=== PATIENT | female | born 1960 | race Caucasian/White ===

== ENCOUNTER 2018-07-28 12:33 | Emergency (ER) | payer BC ==
[~2018-07-28] VITALS: Ht 167.6 cm; Wt 68.2 kg
[~2018-07-28 12:33] MED LIST: AMBIEN 10MG10 MG PO; ASPIRIN 81M81 MG/TA2 PO; CARAFATE 1GM1 G PO; CHANTIX 1MG1 MG; HCTZ 25MG TAB25 MG PO; MEVACOR40 MG PO; MOTRIN 800800 MG/TAB PO; PRILOSEC 20MG20 MG PO; TENORMIN 5050 MG/TAB PO; TUMS500 MG; WELLBUTRIN 75MG75 MG PO; ZANTAC 7575 MG; ZESTRIL 20MG TA20 MG PO; ZYRTEC 10MG10 MG PO
[2018-07-28 12:40] VITALS: TEMP 98.9
[2018-07-28 14:41] VITALS: BP 168/76; PULSE 80
== END 2018-07-28 14:42 | disposition home or self-care (01) ==
LOC: COL.ER 12:33
DX: S90.111A Contusion of right great toe without damage to nail, initial encounter (principal); I10 Essential (primary) hypertension; I25.10 Atherosclerotic heart disease of native coronary artery without angina pectoris; G89.29 Other chronic pain; M54.9 Dorsalgia, unspecified; M54.2 Cervicalgia; F17.210 Nicotine dependence, cigarettes, uncomplicated; Z79.82 Long term (current) use of aspirin; W22.03XA Walked into furniture, initial encounter; Y93.E5 Activity, floor mopping and cleaning; Y92.009 Unspecified place in unspecified non-institutional (private) residence as the place of occurrence of the external cause